=== PATIENT | male | born 1950 | race Caucasian/White ===

== ENCOUNTER 2018-10-24 08:24 | Day surgery (SDC) | payer OTHER, MEDICAID ==
[~2018-10-24] VITALS: Ht 177.8 cm; Wt 86.2 kg
[~2018-10-24 08:24] MED LIST: ALBUAER3 IN; ALLO300T2 PO; CYCL5TAB PO; HYDR-531 PO; LEVO75TA6 PO; METO25TA62 PO; PRAV20TA3 PO; RANI150C11 PO; VARE1PAK12 PO
[2018-10-24] MEDS ORDERED: KETOROLAC TROMETH 30 MG/ML 1ML VIAL IV ONE ×2 (08:25→12:45)
[2018-10-24] MEDS ORDERED: ETOMIDATE (2MG/ML) 20ML VIAL IV ONE (08:25)
[2018-10-24] MEDS ORDERED: ceFAZolin 1GM/50ML 50 ML IV ONE (09:59)
[2018-10-24] MEDS ORDERED: MEPERIDINE HCL (25 MG/ML) 1ML VIAL ONE ×2 (12:02→12:53)
[2018-10-24] MEDS ORDERED: fentaNYL CITRATE 100 MCG/2 ML VL ONE (12:02)
[2018-10-24] MEDS ORDERED: MIDAZOLAM HCL 1MG/1ML-2 ML VIAL ONE (12:02)
[2018-10-24] MEDS ORDERED: DexAMETHasone SOD PHOS 10MG/1ML VIAL INJ ONE (12:28)
[2018-10-24] MEDS ORDERED: PROPOFOL 10 MG/ML 20 ML IV ONE (12:28)
[2018-10-24] MEDS ORDERED: BUPIVACAINE 0.25% INJ 50ML VIAL ONE (12:29)
[2018-10-24] MEDS ORDERED: PHENYLEPHRINE HCL 10 MG/ML VL ONE (12:40)
[2018-10-24] MEDS ORDERED: LABETALOL HCL 5 MG/ML 4ML SYRINGE IV PRN (12:45)
[2018-10-24] MEDS ORDERED: MIDAZOLAM HCL 1MG/1ML-2 ML VIAL IV PRN (12:45)
[2018-10-24] MEDS ORDERED: ePHEDrine SULFATE 50 MG/ML AMP IV PRN (12:45)
[2018-10-24] MEDS ORDERED: MORPHINE SULFATE 4 MG/ML SYR/VIAL IV PRN (12:45)
[2018-10-24] MEDS ORDERED: ONDANSETRON HCL 4 MG/2 ML VIAL IV PRN (12:45)
[2018-10-24] MEDS: HYDROmorphone HCL 2 MG/ML VL IV PRN ×3 (13:40→14:00)
[2018-10-24 14:33] VITALS: BP 123/75
== END 2018-10-24 14:40 | disposition home or self-care (01) ==
LOC: SUR 08:24
PROVIDERS: ATTEND Orthopaedic Surgery
DX: M75.102 Unspecified rotator cuff tear or rupture of left shoulder, not specified as traumatic (principal); M13.812 Other specified arthritis, left shoulder; I10 Essential (primary) hypertension; E07.9 Disorder of thyroid, unspecified; J44.9 Chronic obstructive pulmonary disease, unspecified; G89.29 Other chronic pain; I25.10 Atherosclerotic heart disease of native coronary artery without angina pectoris; Z86.19 Personal history of other infectious and parasitic diseases; Z98.890 Other specified postprocedural states
CPT/HCPCS: 23076; 23180; 23412; J0690; J1100; J1170; J1885; J2175; J2250; J2370; J2704; J3010; J3490